=== PATIENT | male | born 1960 | race Caucasian/White ===

== ENCOUNTER → 2021-11-10 | Outpatient (CLI) | payer OTHER ==
[~2021-11-10] MED LIST: ASPIR 8181 MG PO; COLACE100 MG PO; COREG25 MG PO; LASIX 20 MG TAB20 MG PO; LIPITOR80 MG PO; MIRALAX17 GM PO; PRINIVIL20 MG; TYLENOL325 MG PO
== END ==
LOC: M.RAD 15:00
PROVIDERS: ATTEND Registered Nurse
DX: I50.42 Chronic combined systolic (congestive) and diastolic (congestive) heart failure (principal)